=== PATIENT | male | born 1930 | race Caucasian/White ===

== ENCOUNTER 2016-11-08 15:48 | Emergency (ER) | payer MEDICARE, OTHER ==
[2016-11-08] MEDS ORDERED: FOLIC ACID INJ 5 MG/ML VIAL IV ONE (16:00)
[2016-11-08] MEDS ORDERED: SODIUM CHLORIDE 0.9% 1000ML 500 ML IVS ONE (16:00)
[2016-11-08] MEDS ORDERED: cloNIDine HCL 0.1 MG TAB PO ONE (16:02)
--- NOTE | 2016-11-08 16:58 | RAD ---
EXAM DESCRIPTION: Chest,2 Views CLINICAL HISTORY: 86 years Male, htn, weakness, weight loss COMPARISON: None Available TECHNIQUE: PA/lateral FINDINGS: Hyperexpansion of the chest is observed. The exam suggests bullous lung disease. The heart is within range of normal. No focal infiltrate is detected. IMPRESSION: Findings of chronic obstructive pulmonary disease are observed. I see no acute parenchymal infiltrate. Electronically signed by: Chace Ortiz MD 11/08/2016 4:57 PM CDT
--- NOTE | 2016-11-08 17:19 | RAD ---
EXAM DESCRIPTION: Abdomen Flat Upright CLINICAL HISTORY: weight loss COMPARISON: None. TECHNIQUE: AP supine and upright views the abdomen FINDINGS: Air-filled large and small bowel are observed. The patient may have a mild ileus. No evidence of free intraperitoneal air is seen. No significant air-fluid levels are observed. A large amount stool is observed in the rectal vault. The exam reveals severe degenerative changes in both hips. Diffuse osteopenia is noted. No pathologic intra-abdominal calcification is observed. IMPRESSION: Mild distention of the colon and small bowel is observed may be the result of a mild ileus. The exam also reveals a large amount of stool the region of the rectal vault consistent with a fecal impaction. Electronically signed by: Chace Ortiz MD 11/08/2016 5:19 PM CDT
--- NOTE | 2016-11-08 17:29 | CT ---
EXAM DESCRIPTION: Head CLINICAL HISTORY: dizziness, weight loss COMPARISON: None available TECHNIQUE: Non contrast cranial CT FINDINGS: Mild prominence of the ventricular system and cortical sulci are observed consistent with atrophy. Mild periventricular white matter low-attenuation is observed consistent with ischemic demyelination. Its within range of normal for a patient of this age. No mass lesions or mass effect are observed. No intracranial hemorrhage is noted. Portions of the paranasal sinuses and the orbits as imaged are normal. The mastoid sinus air cells are clear. IMPRESSION: Senescent changes are observed. I see no acute parenchymal pathology. Electronically signed by: Chace Ortiz MD 11/08/2016 5:29 PM CDT
[2016-11-08] MEDS ORDERED: LISINOPRIL 10 MG TAB PO ONE (18:16)
[2016-11-08] MEDS ORDERED: SPIRONOLACTONE 25 MG TAB PO ONE (18:16)
[2016-11-08] MEDS ORDERED: amLODIPine BESYLATE 5 MG TAB PO ONE (18:16)
[2016-11-08] MEDS ORDERED: ALPRAZolam 0.25 MG TAB PO ONE (18:17)
[2016-11-08] MEDS ORDERED: POTASSIUM CHLORIDE ELIXIR 20 MEQ/15 ML UD PO ONE (18:17)
--- NOTE | 2016-11-08 20:48 | ED.PDOC ---
History of Present Illness - General Chief Complaint: Blood Pressure Problem Stated Complaint: high blood pressure, weakness Time Seen by Provider: 11/08/16 15:59 Source: patient Exam Limitations: no limitations - History of Present Illness Initial Comments: the patient is a 6-year-old male brought into the emergency room by family after being sent over from clinic for uncontrolled high blood pressure. The patient has been having some difficulties getting around for the last month. He has also had around a 20-30 pound weight loss over the last 3 months according to him and family. He has apparently not been to a doctor in the last 20 years. He takes no medications. Systolic blood pressures are in the 210s with diastolics in the 120s. He is not having a headache. He does recognize his family members and knows what county this [place]. He does have some hearing difficulties but I do believe there is some mild dementia underlying. He lives by himself and takes care of himself. He does have someone coming to watch him periodically during the week. He reports that he eats well understood in front of him. He ate very well with the food that we brought him here today. He denies any diarrhea. He denies vomiting. He denies any falls. His gait is fairly unsteady. He does have +1 to +2 edema to bilateral lower extremities. He reports feeling fairly short of breath with activity and does have some difficulty climbing stairs and getting up out of a chair. He does not know what his blood pressure normally is because it is never checked. He moves all extremities well against gravity. He does have some mild obvious peripheral neuropathy. he has not had any chest pains or palpitations. No syncope or near-syncope. No vision changes. Timing/Duration: unsure Severity: moderate Improving Factors: nothing Worsening Factors: nothing Associated Symptoms: malaise, weakness Allergies/Adverse Reactions: Allergies NO KNOWN ALLERGY Allergy (Verified 11/08/16 16:02) Home Medications: Ambulatory Orders Lisinopril 10 mg PO DAILY #30 tab 11/08/16 Spironolactone 25 mg PO DAILY #15 tab 11/08/16 Review of Systems - Review of Systems Constitutional: States: malaise, weakness EENTM: States: no symptoms reported Respiratory: States: short of breath - with exertion mainly Cardiology: States: edema Gastrointestinal/Abdominal: States: no symptoms reported Genitourinary: States: no symptoms reported Musculoskeletal: States: no symptoms reported Skin: States: no symptoms reported Neurological: States: weakness, other - memory difficulties Endocrine: States: unexplained weight loss All other Systems: No Change from Baseline Past Medical History (General) - Patient Medical History Hx of COPD: No - Vaccination History Hx Tetanus, Diphtheria Vaccination: No Hx Influenza Vaccination: No Hx Pneumococcal Vaccination: No - Social History Hx Tobacco Use: No Hx Alcohol Use: No Hx Substance Use: No Hx Substance Use Treatment: No Hx Depression: No - Activities of Daily Living Hospice Agency (if applicable):: None - Female History Patient is a Female of Child Bearing Age (10 -59 yrs old): No Patient : No Family Medical History - Family History Mother Family History: Unknown Living Status: Physical Exam - Physical Exam General Appearance: Alert, Comfortable, No apparent distress Eye Exam: bilateral normal Ears, Nose, Throat: normal ENT inspection, normal pharynx, other - decreased hearing bilaterally Neck: full range of motion, supple, normal inspection Respiratory: chest non-tender, lungs clear, normal breath sounds, no respiratory distress, no accessory muscle use Cardiovascular/Chest: normal peripheral pulses, regular rate, rhythm, no edema Peripheral Pulses: radial,right: 2+, radial,left: 2+, dorsalis pedis,right: 2+, dorsalis pedis,left: 2+ Gastrointestinal/Abdominal: non tender, soft Rectal Exam: deferred, other - large right-sided inguinal hernia that is nontender to palpation and long-standing Back Exam: normal inspection, no CVA tenderness Extremity: normal range of motion, non-tender, normal inspection, no pedal edema , normal capillary refill Neurologic: alert, normal mood/affect, oriented x 3 Skin Exam: normal color Comments: Vital Signs - 24 hr 11/08/16 11/08/16 11/08/16 15:52 17:02 18:10 Temperature 98.0 F Pulse Rate [ 83 81 82 pulse ox] Respiratory 20 20 20 Rate Blood Pressure 200/122 191/114 202/117 [Left Arm] O2 Sat by Pulse 95 94 L 95 Oximetry 11/08/16 11/08/16 19:15 20:03 Temperature Pulse Rate [ 86 76 pulse ox] Respiratory 20 20 Rate Blood Pressure 175/107 156/94 [Left Arm] O2 Sat by Pulse 95 94 L Oximetry Progress - Progress Progress: 11/08/16 20:51 the patient is an 86-year-old male presenting to the emergency room primarily for uncontrolled hypertension. The patient's blood pressures have come back down within a normal range with a combination of low-dose Norvasc, mid dose lisinopril and low-dose spironolactone. The patient will be continued on spironolactone 25 mg by mouth every morning and lisinopril 10 mg by mouth every morning. He does have some mild hypokalemia here and this should help with this. He does need follow-up with a primary care doctor within the next few weeks as he does have multiple medical problems that need follow-up. The patient's weakness is likely related to weight loss which is likely related to decreased oral intake due to social difficulties. He would benefit from Meals on Wheels and likely anutritional supplement such as boost. Additionally I do want him to take 2 Centrum Silver tablets daily. He needs to obtain a primary care doctor very badly. He does need to be followed by home health for his weight. if adequate calorie intake does not improve this issue then a search causes of weight loss may be required. blood pressures obviously also need to be followed. It is possible that the gait difficulties may be related to uncontrolled hypertension as well, though I believe this is less likely. 11/08/16 20:57 - Results/Orders Results/Orders: Laboratory Tests 11/08/16 11/08/16 16:02 18:15 WBC 8.9 RBC 4.76 Hgb 14.0 Hct 42.8 MCV 89.9 MCH 29.5 MCHC 32.8 L RDW 13.9 Plt Count 314 MPV 6.6 L Absolute Neuts (auto) 7.60 H Absolute Lymphs (auto) 0.50 L Absolute Monos (auto) 0.70 Absolute Eos (auto) 0.00 Absolute Basos (auto) 0.10 Neutrophils % 85.7 H Lymphocytes % 5.9 L Monocytes % 7.4 Eosinophils % 0.3 L Basophils % 0.7 Sodium 142 Potassium 3.2 L Chloride 102 Carbon Dioxide 30 Anion Gap 13.2 BUN 21 H Creatinine 0.78 BUN/Creatinine Ratio 26.9 H Random Glucose 116 H Serum Osmolality 287.1 Calcium 9.2 Magnesium 2.0 Total Bilirubin 0.7 AST 30 ALT 19 Alkaline Phosphatase 123 H Creatine Kinase 137 CK-MB (CK-2) 6.1 H* CK-MB (CK-2) % 4.45 H Troponin I < 0.02 B-Natriuretic Peptide 176.0 H Serum Total Protein 7.4 Albumin 4.1 Globulin 3.3 Albumin/Globulin Ratio 1.2 Amylase 73 Lipase 34 Total PSA 1.77 TSH 1.17 Urine Color Yellow Urine Appearance Clear Urine pH 7.0 Ur Specific [place] 1.020 Urine Protein 100 H Urine Glucose (UA) Negative Urine Ketones 15 H Urine Blood Trace-intact H Urine Nitrite Negative Urine Bilirubin Negative Urine Urobilinogen 2.0 H Ur Leukocyte Esterase Negative Urine RBC 1-3 Urine WBC 0-1 Ur Epithelial Cells 0 Urine Bacteria 0 chest x-ray shows changes consistent with COPD. Abdominal x-ray shows mild low constipation. CT scan of the head shows no acute pathology but does show chronic changes. EKG shows normal sinus rhythm with a fairly normal axis but poor R-wave progression in anterior leads. He does have voltage consistent with LVH. Departure - Departure Clinical Impression: Uncontrolled hypertension, Hypokalemia, Unexplained weight loss Disposition: Discharge to Home or Self Care Condition: Fair Departure Forms: ED Discharge - Pt. Copy, Patient Portal Self Enrollment Instructions: DI for High Blood Pressure Diet: regular diet Activity: increase activity as tolerated Prescriptions: Lisinopril 10 mg PO DAILY #30 tab Spironolactone 25 mg PO DAILY #15 tab Home Medications: Ambulatory Orders Lisinopril 10 mg PO DAILY #30 tab 11/08/16 Spironolactone 25 mg PO DAILY #15 tab 11/08/16 Additional Instructions: the patient is an 86-year-old male presenting to the emergency room primarily for uncontrolled hypertension. The patient's blood pressures have come back down within a normal range with a combination of low-dose Norvasc, mid dose lisinopril and low-dose spironolactone. The patient will be continued on spironolactone 25 mg by mouth every morning and lisinopril 10 mg by mouth every morning. He does have some mild hypokalemia here and this should help with this. He does need follow-up with a primary care doctor within the next few weeks as he does have multiple medical problems that need follow-up. The patient's weakness is likely related to weight loss which is likely related to decreased oral intake due to social difficulties. He would benefit from Meals on Wheels and likely anutritional supplement such as boost. Additionally I do want him to take 2 Centrum Silver tablets daily. He needs to obtain a primary care doctor very badly. He does need to be followed by home health for his weight. if adequate calorie intake does not improve this issue then a search causes of weight loss may be required. blood pressures obviously also need to be followed. It is possible that the gait difficulties may be related to uncontrolled hypertension as well, though I believe this is less likely.
[2016-11-08 21:19] VITALS: BP 141/89; TEMP 97.9; O2SAT 95
[2016-11-09] MEDS ORDERED: THIAMINE HCL 100 MG TAB PO ONE (16:01)
== END 2016-11-08 21:09 | disposition home or self-care (01) ==
LOC: ER 15:48
DX: I10 Essential (primary) hypertension (principal); E87.6 Hypokalemia; R63.4 Abnormal weight loss; Z79.899 Other long term (current) drug therapy
CPT/HCPCS: 70450; 71020; 74010; 80053; 81001; 82150; 82550; 82553; 83690; 83735; 83880; 84153; 84443; 84484; 85025; 93005; J7030

== ENCOUNTER → 2016-11-13 | Outpatient (CLI) | payer MEDICARE | END | disposition home or self-care (01) | LOC: GMA 14:09 | PROVIDERS: ATTEND Nurse Practitioner Acute Care | DX: M62.81 Muscle weakness (generalized) (principal) ==

== ENCOUNTER → 2017-01-09 | Outpatient (CLI) | payer MEDICARE, OTHER | END | disposition home or self-care (01) | LOC: GT 08:04 | PROVIDERS: ATTEND Internal Medicine | DX: Z79.899 Other long term (current) drug therapy (principal); D64.9 Anemia, unspecified; I48.91 Unspecified atrial fibrillation ==

== ENCOUNTER → 2017-01-21 | Outpatient (CLI) | payer MEDICARE, OTHER | END | disposition home or self-care (01) | LOC: GMAM 15:06 | PROVIDERS: ATTEND Family Medicine | DX: F05 Delirium due to known physiological condition (principal) ==

== ENCOUNTER 2017-01-22 09:35 | Emergency (ER) | payer MEDICARE, OTHER ==
--- NOTE | 2017-01-22 10:10 | RAD ---
Study: Single Frontal View of the Chest. Indication:syncope Comparison: November 08, 2016. Impression: Cardiomegaly. Thoracic aorta tortuous. Progressed moderate pulmonary edema most pronounced at the lung bases. Underlying pneumonia not excluded. Short-term follow up recommended. Emphysema. No pneumothorax or pleural effusion. Osteopenia. If this is a new finding, DEXA scan recommended as well as evaluation for possible osteoporosis treatment. Electronically signed by: Jackson Yun MD 01/22/2017 10:10 AM CDT
--- NOTE | 2017-01-22 10:22 | CT ---
Study: CT of the Head. Indication: syncope in shower Technique: Axial CT images of the head were acquired without intravenous contrast. This exam was performed according to our departmental dose-optimization program, which includes automated exposure control, adjustment of the mA and/or kV according to patient size and/or use of iterative reconstruction technique. Comparison: None. Findings: No CT evidence of acute ischemia, acute hemorrhage, mass, mass effect, midline shift, or extra-axial fluid collection. Ventricles are normal in configuration without hydrocephalus. Patchy hypoattenuation of the periventricular and subcortical white matter noted. This is nonspecific but most consistent with chronic microvascular ischemic change. Global parenchymal volume loss and intracranial atherosclerosis noted as well. Paranasal sinuses are adequately aerated. Mastoid air cells are adequately aerated. Osseous structures and soft tissues are unremarkable. Impression: 1. No CT evidence of acute intracranial abnormality. 2. Senescent changes. Electronically signed by: Jackson Yun MD 01/22/2017 10:22 AM CDT
[2017-01-22] MEDS: SODIUM CHLORIDE 0.9% 1000ML 1,000 ML IVS ONE (10:30)
--- NOTE | 2017-01-22 11:01 | CT ---
Study: CT cervical spine. Indication: syncope in shower Technique: Axial CT images were acquired through the cervical spine without intravenous contrast. Coronal and sagittal reformats performed. This exam was performed according to our departmental dose-optimization program, which includes automated exposure control, adjustment of the mA and/or kV according to patient size and/or use of iterative reconstruction technique. Comparison: None. Findings: No acute cervical fracture identified, however evaluation limited given history of osteopenia. Mild accentuation of cervical lordosis. Pronounced multilevel cervical disc disease noted with extensive facet arthrosis and uncovertebral hypertrophy throughout. There is resultant multilevel high-grade bilateral neural foraminal narrowing. In addition there is multilevel disc osteophyte complexes indenting the ventral thecal sac with changes most pronounced at the C4-C5 disc space level with at least [id number] spinal canal narrowing. Minimal air noted the bilateral internal jugular veins likely injection related. Atherosclerosis carotid bulbs. 2.4 cm right thyroid nodule. Impression: No CT evidence of acute cervical fracture. Cervical disc disease. Dedicated MRI cervical spine could better evaluate as clinically indicated. 2.4 cm heterogeneous right thyroid nodule. Correlation with nonemergent thyroid sonogram recommended. Electronically signed by: Jackson Ynu MD 01/22/2017 11:01 AM CDT
--- NOTE | 2017-01-22 12:45 | CT ---
Study: CT angiography of the chest, pulmonary embolus protocol. Indication: pe protocol, ddimer, hypotension, elevated bnp Technique: Axial CT images were acquired through the chest after intravenous administration of contrast utilizing the CT angiography, pulmonary embolus protocol. Computer-generated 3D reconstructions (MIPS) were performed and reviewed. This exam was performed according to our departmental dose-optimization program, which includes automated exposure control, adjustment of the mA and/or kV according to patient size and/or use of iterative reconstruction technique. Comparison: None. Findings: No CTA evidence of central pulmonary embolus. Distal evaluation limited due to motion degradation. Cardiomegaly. Atherosclerosis great vessels, aorta, and coronary arteries. Reflux of contrast into the hepatic veins which can be seen with right-sided heart failure. Partial visualization mildly prominent left renal collecting system. Degenerative changes of the spine noted. Osteopenia. Several remote right posteromedial rib fractures noted. Mild emphysema. Patchy consolidative changes noted throughout the bilateral lungs and most pronounced in the bilateral lower lobes. Small right pleural effusion. No pneumothorax. Impression: No CTA evidence of central pulmonary embolus. Patchy consolidative changes of the lungs, most pronounced in the lower lobes concerning for pneumonia. Small right pleural effusion. Mild prominence left renal collecting system partially visualized. This could indicate an extrarenal pelvis or possibly hydronephrosis. Renal sonogram could better evaluate. Additional findings as above. Electronically signed by: Jackson Yun MD 01/22/2017 12:45 PM CDT
[2017-01-22] MEDS ORDERED: cefTRIAXone SODIUM 1 GM VIAL ONE (14:03)
[2017-01-22] MEDS ORDERED: SODIUM CHL 0.9% 50ML MIN-BAG+ 50 ML IVPB ONE (14:03)
[2017-01-22] MEDS ORDERED: ENOXAPARIN SODIUM 60 MG/0.6 ML SYG SUBCU ONE (14:04)
[2017-01-22] MEDS: CLOPIDOGREL 75 MG TAB PO ONE (14:11)
[2017-01-22] MEDS: cefTRIAXone SODIUM 1 GM in SODIUM CHL 0.9% 50ML MIN-BAG+ 50 ML IVPB ONE (14:11)
--- NOTE | 2017-01-22 14:18 | ED.PDOC ---
History of Present Illness - General Chief Complaint: Cardiovascular Problem Stated Complaint: unresponsive Time Seen by Provider: 01/22/17 09:52 Source: patient, EMS notes reviewed, family Exam Limitations: clinical condition - History of Present Illness Initial Comments: the patient is an 86-year-old male presenting to the emergency room from a [facility] secondary to collapsing in the shower. The patient apparently had surgery on his right hip back in November after a fracture. 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 The patient has since been at the [facility] doing rehabilitation. Since that time, apparently his mental status and physical functional status had gradually been in decline. Over the last week particularly he has been more confused and less able to participate with therapy. This information is coming from family. He has had some significant weight loss. Family denies any previous cardiac history other than atrial fibrillation that has been rate controlled with metoprolol. He also apparently has a history of a tremor, COPD, GERD, iron deficiency, multiple vitamin deficiencies and some mild dementia to start with. According to [facility]dc staff this morning the patient collapsed in the shower and they were unable to find a pulse and he was not breathing. [place] where he started to come to. It does not appear that they had a chance to initiate CPR. Initial vitals taken shortly heart rate between 150 and 180. Blood pressures were in the 90s over 50s there. He was not hypoxic. Upon arrival to the emergency room here his blood pressure was approximately 90/ 60. Pulse ox was 94% on room air. Heart rate was around 110 and atrial fibrillation. The patient is not reporting any pain. He does answer yes and no appropriately to simple questions. He is able to move all his extremities. He is not reporting any head or neck pain. No chest pain. No shortness of breath. He does get significantly confused with more complicated questions. He does recognize his family members. He apparently saw his primary care doctor yesterday for the altered mental status and they were trying to get an MRI set up. He apparently did have a urinary tract infection after the surgery. It was treated. clinically upon arrival the patient looks frail and may see aided. He also looks dehydrated. Mucous membranes are fairly dry. There is no edema. lungs are clear in anterior canales and there is no cough or respiratory distress. Timing/Duration: unsure Severity: severe Improving Factors: nothing Worsening Factors: nothing Associated Symptoms: loss of appetite, weakness Allergies/Adverse Reactions: Allergies NO KNOWN ALLERGY Allergy (Verified 11/08/16 16:02) Home Medications: Ambulatory Orders Acetaminophen [Tylenol] 500 mg PO Q4H PRN 01/22/17 Ascorbic Acid [Vitamin C] 500 mg PO DAILY 01/22/17 Aspirin [(None)] 325 mg PO QD 01/22/17 Atorvastatin Calcium [Lipitor] 20 mg PO DAILY 01/22/17 Buspirone HCl 5 mg PO DAILY 01/22/17 Cyanocobalamin [Vitamin B 12] 500 mcg PO BID 01/22/17 Diclofenac Epolamine [Flector] 1.3 % TD DAILY 01/22/17 Docusate Sodium [Colace Cap] 100 mg PO BID 01/22/17 Ergocalciferol [Vitamin D2] 50,000 unit PO DAILY 01/22/17 Famotidine 10 mg PO BID 01/22/17 Ferrous Sulfate [Iron] 325 mg PO DAILY 01/22/17 HYDROcodone 7.5MG/APAP 325MG [[place] 7.5/325] 1 tab PO Q8H PRN 01/22/17 Lisinopril 5 mg PO BID 01/22/17 Magnesium Hydroxide [Milk Of Magnesia] 1 mingo PO DAILY PRN 01/22/17 Metoprolol Tartrate [Lopressor] 50 mg PO BID 01/22/17 Sennosides-Docusate Sodium [Senna-Plus] 1 tab PO BID 01/22/17 Review of Systems - Review of Systems Review of Systems: 01/22/17 14:17 as best can be obtained from the patient and his conditionand the family Constitutional: States: malaise, weakness - generalized EENTM: States: no symptoms reported Respiratory: States: no symptoms reported Cardiology: States: syncope - today Gastrointestinal/Abdominal: States: no symptoms reported Genitourinary: States: no symptoms reported Musculoskeletal: States: joint pain - hip pain Skin: States: other - minimal drainage from the operative site on the right hip. Neurological: States: anxiety, tremors, weakness Endocrine: States: no symptoms reported All other Systems: No Change from Baseline Past Medical History (General) - Patient Medical History Hx of COPD: Yes Hx Hypertension: Yes Hx Gastroesophageal Reflux: Yes Hx Cancer: - UNKN Hx MRSA: Yes - Vaccination History Hx Tetanus, Diphtheria Vaccination: - UNKN Hx Influenza Vaccination: - UNKN Hx Pneumococcal Vaccination: - UNKN - Social History Hx Tobacco Use: No Hx Alcohol Use: - UNKN Hx Substance Use: - UNKN Hx Substance Use Treatment: No Hx Depression: - UNKN - Activities of Daily Living Residential/Assisted Living (if applicable):: [facility] Rice - Female History Patient : No Family Medical History - Family History Mother Family History: Unknown Living Status: Physical Exam - Physical Exam General Appearance: Alert, Anxious, Emaciated, Frail Eye Exam: bilateral normal Ears, Nose, Throat: normal pharynx - hearing is decreased bilaterally, other - mucous membranses are dry Neck: non-tender, full range of motion, supple Respiratory: chest non-tender, lungs clear - mild bibasilar rales posteriorly, normal breath sounds, no respiratory distress, no accessory muscle use Cardiovascular/Chest: normal peripheral pulses, no edema, tachycardia, irregularly irregular Peripheral Pulses: radial,right: 2+, radial,left: 2+, dorsalis pedis,right: 2+, dorsalis pedis,left: 2+, posterior tibialis,right: 1+, posterior tibialis,left: 1+ Gastrointestinal/Abdominal: non tender, soft Rectal Exam: deferred Back Exam: normal inspection, no CVA tenderness, no vertebral tenderness Extremity: normal range of motion, non-tender, normal inspection, no pedal edema , normal capillary refill, other - right hip site with very minimal drainage Neurologic: no motor/sensory deficits - as best can be determined. he does become easily confused, alert - ildly drowsy, other - he recognizes his family. Skin Exam: normal color Comments: Vital Signs - 24 hr 01/22/17 01/22/17 01/22/17 09:49 10:15 11:10 Temperature 98.2 F Pulse Rate 116 H Pulse Rate [ 114 H 100 H 103 H MONITO] Respiratory 18 18 20 Rate Blood Pressure 92/68 103/67 96/65 [RT ARM] O2 Sat by Pulse 93 L Oximetry 01/22/17 01/22/17 01/22/17 11:25 11:40 11:55 Temperature Pulse Rate Pulse Rate [ 100 H 99 H 98 H MONITO] Respiratory Rate Blood Pressure 112/50 96/67 103/67 [RT ARM] O2 Sat by Pulse Oximetry 01/22/17 12:30 Temperature Pulse Rate Pulse Rate [ 101 H MONITO] Respiratory 20 Rate Blood Pressure 90/61 [RT ARM] O2 Sat by Pulse Oximetry Progress - Progress Progress: 01/22/17 14:37 the patient is an 86-year-old male presenting after collapse at the [facility] after a gradual decline over the past month or 2. It appears the patient is having at least a small non-ST elevation myocardial infarction. the patient was given Plavix and Lovenox. Morphine and nitroglycerin have been held due to lack of symptoms and hypotension. Whether that is due to coronary pathology or possibly a transient non-perfusing arrhythmia cannot say at this time. He is not having any chest pain and is not in any respiratory distress. He is mildly hypotensive and he was dehydrated upon arrival. He has received IV fluids. His blood pressure is improving. CT angiogram of the chest was done to rule out pulmonary embolus and was negative. Telemetry monitoring here shows atrial fibrillation with rapid ventricular rate with no other unusual rhythms noted. CT scan of the head and cervical spine showed no evidence of acute pathology. The patient does have some mild acute renal failure possibly due to dehydration but also possibly due to longer standing mild hypotension. CT scan of the chest did show some mild patchy infiltrates that could be consistent with CHF or pneumonia. He did receive 1 dose of Rocephin IV. Blood cultures have also been done due to his recent staph infection from his operative site. he patient is being transferred forcardiology evaluation, and may also benefit from a neurology evaluation. his BNP is significantly elevated from baseline, though his renal function is also significantly elevated from baseline. This is at least consistent with the pleural effusions seen on the CT scan along with the hepatic reflux. 01/22/17 14:44 - Results/Orders Results/Orders: 01/22/17 09:53 Telemetry .CONTINUOUS shows atrial fibrillation with RVR. I do not see any obvious wide-complex arrhythmias. Peak rate is around 130. Averages around 110. 01/22/17 10:00 BLOOD CULTURE Stat EKG STAT shows atrial fibrillation with rapid ventricular rate. Normal axis. No acute ST segment changes diagnostic for ischemia. Laboratory Results - last 24 hr 01/22/17 01/22/17 01/22/17 09:30 09:30 09:30 WBC 11.5 H RBC 3.72 L Hgb 10.8 L Hct 33.3 L MCV 89.7 MCH 29.0 MCHC 32.4 L RDW 14.0 Plt Count 289 MPV 6.9 L Absolute Neuts (auto) 10.60 H Absolute Lymphs (auto) 0.20 L Absolute Monos (auto) 0.50 Absolute Eos (auto) 0.10 Absolute Basos (auto) 0.10 Neutrophils % 93.0 H Lymphocytes % 1.6 L Monocytes % 3.9 Eosinophils % 0.8 L Basophils % 0.7 PT 14.0 H INR 1.240 PTT (SP) 34.2 D-Dimer, Quantitative Sodium 136 Potassium 4.1 Chloride 103 Carbon Dioxide 24 Anion Gap 13.1 BUN 33 H Creatinine 1.00 BUN/Creatinine Ratio 33.0 H Random Glucose 136 H Serum Osmolality 281.3 Lactic Acid Calcium 8.4 Magnesium 1.9 Total Bilirubin 0.7 AST 35 ALT 30 Alkaline Phosphatase 98 Creatine Kinase 102 CK-MB (CK-2) 4.5 H CK-MB (CK-2) % 4.41 H Troponin I 0.04 B-Natriuretic Peptide 1240.0 H* Serum Total Protein 5.4 L Albumin 2.8 L Globulin 2.6 Albumin/Globulin Ratio 1.1 Amylase 36 Lipase 18 L TSH 1.29 Urine Color Urine Appearance Urine pH Ur Specific [place] Urine Protein Urine Glucose (UA) Urine Ketones Urine Blood Urine Nitrite Urine Bilirubin Urine Urobilinogen Ur Leukocyte Esterase Urine RBC Urine WBC Ur Epithelial Cells Amorphous Sediment Urine Bacteria Hyaline Casts Urine Mucus 01/22/17 01/22/17 01/22/17 10:00 10:00 11:35 WBC RBC Hgb Hct MCV MCH MCHC RDW Plt Count MPV Absolute Neuts (auto) Absolute Lymphs (auto) Absolute Monos (auto) Absolute Eos (auto) Absolute Basos (auto) Neutrophils % Lymphocytes % Monocytes % Eosinophils % Basophils % PT INR PTT (SP) D-Dimer, Quantitative 740 H* Sodium Potassium Chloride Carbon Dioxide Anion Gap BUN Creatinine BUN/Creatinine Ratio Random Glucose Serum Osmolality Lactic Acid 1.3 Calcium Magnesium Total Bilirubin AST ALT Alkaline Phosphatase Creatine Kinase CK-MB (CK-2) CK-MB (CK-2) % Troponin I B-Natriuretic Peptide Serum Total Protein Albumin Globulin Albumin/Globulin Ratio Amylase Lipase TSH Urine Color Yellow Urine Appearance Clear Urine pH 5.5 Ur Specific [place] 1.025 Urine Protein 100 H Urine Glucose (UA) Negative Urine Ketones 15 H Urine Blood Small H Urine Nitrite Negative Urine Bilirubin Small H Urine Urobilinogen 1.0 Ur Leukocyte Esterase Negative Urine RBC 1-3 Urine WBC 0-1 Ur Epithelial Cells 1-3 Amorphous Sediment 3+ Urine Bacteria Rare Hyaline Casts 0-1 Urine Mucus Small 01/22/17 13:00 WBC RBC Hgb Hct MCV MCH MCHC RDW Plt Count MPV Absolute Neuts (auto) Absolute Lymphs (auto) Absolute Monos (auto) Absolute Eos (auto) Absolute Basos (auto) Neutrophils % Lymphocytes % Monocytes % Eosinophils % Basophils % PT INR PTT (SP) D-Dimer, Quantitative Sodium Potassium Chloride Carbon Dioxide Anion Gap BUN Creatinine BUN/Creatinine Ratio Random Glucose Serum Osmolality Lactic Acid Calcium Magnesium Total Bilirubin AST ALT Alkaline Phosphatase Creatine Kinase 113 CK-MB (CK-2) 6.4 H* D CK-MB (CK-2) % 5.66 H Troponin I 0.14 H* B-Natriuretic Peptide Serum Total Protein Albumin Globulin Albumin/Globulin Ratio Amylase Lipase TSH Urine Color Urine Appearance Urine pH Ur Specific [place] Urine Protein Urine Glucose (UA) Urine Ketones Urine Blood Urine Nitrite Urine Bilirubin Urine Urobilinogen Ur Leukocyte Esterase Urine RBC Urine WBC Ur Epithelial Cells Amorphous Sediment Urine Bacteria Hyaline Casts Urine Mucus CT scan of the head shows no evidence of acute pathology. CT scan of the cervical spine shows no vidence of fracture. CT angiogram of the chest shows no evidence of central pulmonary emboli. there are patchy infiltrates that could b possibly consistent with pneumonia versus CHF. He does have posterior pleural effusions. - EKG/XRAY/CT CT Ordered: Yes Departure - Departure Clinical Impression: NSTEMI (non-ST elevated myocardial infarction) Hypotension Qualifiers: Hypotension type: unspecified hypotension type Qualified Code(s): I95.9 - Hypotension, unspecified Disposition: Transfer to Hospital Referrals: Lawrence Wagner MD [Primary Care Provider] - 1-2 Weeks Home Medications: Ambulatory Orders Acetaminophen [Tylenol] 500 mg PO Q4H PRN 01/22/17 Ascorbic Acid [Vitamin C] 500 mg PO DAILY 01/22/17 Aspirin [(None)] 325 mg PO QD 01/22/17 Atorvastatin Calcium [Lipitor] 20 mg PO DAILY 01/22/17 Buspirone HCl 5 mg PO DAILY 01/22/17 Cyanocobalamin [Vitamin B 12] 500 mcg PO BID 01/22/17 Diclofenac Epolamine [Flector] 1.3 % TD DAILY 01/22/17 Docusate Sodium [Colace Cap] 100 mg PO BID 01/22/17 Ergocalciferol [Vitamin D2] 50,000 unit PO DAILY 01/22/17 Famotidine 10 mg PO BID 01/22/17 Ferrous Sulfate [Iron] 325 mg PO DAILY 01/22/17 HYDROcodone 7.5MG/APAP 325MG [[place] 7.5/325] 1 tab PO Q8H PRN 01/22/17 Lisinopril 5 mg PO BID 01/22/17 Magnesium Hydroxide [Milk Of Magnesia] 1 mingo PO DAILY PRN 01/22/17 Metoprolol Tartrate [Lopressor] 50 mg PO BID 01/22/17 Sennosides-Docusate Sodium [Senna-Plus] 1 tab PO BID 01/22/17 Transfer to Outside Facility - Transfer Information Accepting Provider:: dr bryant Accepting Facility: [facility] Reason for Transfer: specialized care not available
[2017-01-22 15:07] VITALS: BP 122/72; TEMP 97.4; O2SAT 94
== END 2017-01-22 15:08 | disposition short-term general hospital (02) ==
LOC: ER 09:35
DX: I21.4 Non-ST elevation (NSTEMI) myocardial infarction (principal); I95.9 Hypotension, unspecified; J90 Pleural effusion, not elsewhere classified; E04.1 Nontoxic single thyroid nodule; J44.9 Chronic obstructive pulmonary disease, unspecified; I10 Essential (primary) hypertension; K21.9 Gastro-esophageal reflux disease without esophagitis; A49.02 Methicillin resistant Staphylococcus aureus infection, unspecified site; F03.90 Unspecified dementia, unspecified severity, without behavioral disturbance, psychotic disturbance, mood disturbance, and anxiety; I48.91 Unspecified atrial fibrillation; E61.1 Iron deficiency; E56.9 Vitamin deficiency, unspecified; Z79.899 Other long term (current) drug therapy; Z79.82 Long term (current) use of aspirin
CPT/HCPCS: 36415; 70450; 71010; 71275; 72125; 80053; 81001; 82150; 82550; 82553; 83605; 83690; 83735; 83880; 84443; 84484; 85025; 85379; 85610; 85730; 87040; 93005; J0696; J1650; J2060; J7030; J7050